=== PATIENT | female | born 1935 | race Caucasian/White ===

== ENCOUNTER 2017-04-04 11:34 | Emergency (ER) | payer OTHER ==
[~2017-04-04 11:34] MED LIST: AMLODIPINE5 M1 PO; FAMOTIDINE40 MG PO; LEVOTHYROXINE0.1 M2 PO; LOSARTAN POTASS25 M1 PO; LOVASTATIN20 MG PO
[2017-04-04 15:26] VITALS: BP 138/78
== END 2017-04-04 15:26 | disposition home or self-care (01) ==
LOC: ED 11:34
DX: S80.02XA Contusion of left knee, initial encounter (principal); I10 Essential (primary) hypertension; Z88.5 Allergy status to narcotic agent; Z79.899 Other long term (current) drug therapy; W18.30XA Fall on same level, unspecified, initial encounter; Y93.89 Activity, other specified; Y99.8 Other external cause status; Y92.89 Other specified places as the place of occurrence of the external cause
CPT/HCPCS: J2270

== ENCOUNTER 2017-08-31 10:14 | Emergency (ER) | payer OTHER ==
[~2017-08-31] VITALS: Ht 165.1 cm; Wt 61.2 kg
[2017-08-31 10:22] VITALS: Ht 165.1 cm; Wt 61.2 kg
[2017-08-31 11:20] LABS: BASOPHIL % 0.5 % (0-2); PLATELET COUNT 187 x10^3mcL (130-400); RED CELL DISTRIBUTION WIDTH 14.2 % (11.5-14.5)
[2017-08-31 11:32] LABS: CARBON DIOXIDE 29.2 mmol/L (21-32); CHLORIDE SERUM 106 mmol/L (98-107); CREATININE SERUM 0.6 mg/dL (0.6-1.0); GLUCOSE SERUM 97 mg/dL (74-106); POTASSIUM SERUM 4.6 mmol/L (3.5-5.1); SODIUM SERUM 141 mmol/L (136-145)
[2017-08-31 11:36] LABS: ALBUMIN 3.4 g/dL (3.4-5.0); ALKALINE PHOSPHATASE 81 U/L (46-116); ALT/SGPT 22 U/L (14-59); AST/SGOT 17 U/L (15-37); BILIRUBIN TOTAL 0.44 mg/dL (0.20-1.00); CHOLESTEROL 136 mg/dL (<200); CHOLESTEROL/HDL RATIO 2.8; HDL CHOLESTEROL 49 mg/dL (40-60); LIPASE 90 IU/L (73-393); TOTAL PROTEIN, SERUM 6.9 g/dL (6.4-8.2); TRIGLYCERIDES 117 mg/dL (<150)
[2017-08-31 11:44] LABS: FREE T4 1.15 ng/dL (0.76-1.46)
[2017-08-31 11:49] LABS: T3 TOTAL 0.85 ng/mL
[2017-08-31 13:56] VITALS: BP 130/75
== END 2017-08-31 13:57 | disposition short-term general hospital (02) ==
LOC: ED 10:14
PROVIDERS: Specialist
DX: S82.302A Unspecified fracture of lower end of left tibia, initial encounter for closed fracture (principal); S82.402A Unspecified fracture of shaft of left fibula, initial encounter for closed fracture; I10 Essential (primary) hypertension; E78.00 Pure hypercholesterolemia, unspecified; Z88.5 Allergy status to narcotic agent; Z96.652 Presence of left artificial knee joint; W19.XXXA Unspecified fall, initial encounter; Y93.89 Activity, other specified; Y92.89 Other specified places as the place of occurrence of the external cause; Y99.8 Other external cause status
CPT/HCPCS: 83880; 84439; J1885; J3010